=== PATIENT | male | born 1940 | race Caucasian/White ===

== ENCOUNTER 2023-05-06 08:40 | Emergency (ER) | payer MEDICARE, OTHER ==
[2023-05-06 08:59] VITALS: TEMP 97.7; O2SAT 94
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
[2023-05-06 09:58] VITALS: BP 120/78; PULSE 67; RESP 16
== END 2023-05-06 10:14 | disposition home or self-care (01) ==
LOC: ED 08:40
DX: Z04.1 Encounter for examination and observation following transport accident (principal); E78.5 Hyperlipidemia, unspecified; I10 Essential (primary) hypertension; Z79.899 Other long term (current) drug therapy; Z28.310 Unvaccinated for COVID-19
CPT/HCPCS: 70450; 99283